=== PATIENT | male | born 1985 | race Caucasian/White ===

== ENCOUNTER 2024-02-24 10:29 | Emergency (ER) | payer BC, OTHER ==
[~2024-02-24] VITALS: Ht 177.8 cm; Wt 77.7 kg
[~2024-02-24 10:29] MED LIST: ACET-812 PO; IBUP-24 PO
[2024-02-24 12:12] LABS: BASOPHILS # (AUTO) 0.1 X10'3 (0-0.2); BASOPHILS % (AUTO) 0.6 % (0-1); EOSINOPHILS % (AUTO) 0.3 % (0-6); HEMATOCRIT 46.1 % (42.0-52.0); HEMOGLOBIN 15.5 g/dl (14.0-17.9); LYMPHOCYTES # (AUTO) 1.2 X10'3 (1.1-4.8); LYMPHOCYTES % (AUTO) 11.8 % (21-51); MEAN CORPUSCULAR HGB CONC 33.6 g/dL (33.0-36.5); MEAN CORPUSCULAR VOLUME 107.3 FL (78-98); MONOCYTES # (AUTO) 1.2 X10'3 (0-0.9); MONOCYTES % (AUTO) 11.3 % (2-12); NEUTROPHILS # (AUTO) 7.8 X10'3 (1.8-7.7); PLATELET COUNT 204 X10'3 (140-440); RED CELL DISTRIBUTION WIDTH 12.6 % (11.5-14.5); WHITE BLOOD COUNT 10.3 X10'3 (4.5-11.0)
[2024-02-24 12:17] LABS: ALANINE AMINOTRANSFERASE 49 U/L (12-78); ALBUMIN 3.9 G/DL (3.4-5.0); ALBUMIN/GLOBULIN RATIO 0.8 (1.1-1.5); ALKALINE PHOSPHATASE 114 IU/L (46-116); AMYLASE 62 U/L (25-115); ANION GAP 24 (8-16); ASPARTATE AMINO TRANSFERASE 219 U/L (10-37); BLOOD UREA NITROGEN 19 MG/DL (7-18); CALCIUM 9.8 MG/DL (8.5-10.1); CHLORIDE 90 MMOL/L (99-107); CREATININE 1.58 MG/DL (0.60-1.10); GLUCOSE 122 MG/DL (70-104); LIPASE 64 U/L (16-77); POTASSIUM 3.1 MMOL/L (3.5-5.1); SODIUM 134 MMOL/L (135-145); eCRCL 66 ML/MIN; eGFR 50 ML/MIN
[2024-02-24 12:50] LABS: BILIRUBIN,URINE LARGE (Neg); CLARITY,URINE CLOUDY (Clear); COLOR,URINE AMBER (Yellow); GLUCOSE, URINE 100 mg/dl (Neg); KETONES,URINE >=80 mg/dl (Neg); LEUKOCYTE ESTERASE ,URINE TRACE (Neg); NITRITES, URINE POSITIVE (Neg); OCCULT BLOOD,URINE NEGATIVE (Neg); PH,URINE 6.5 (4.8-8.0); PROTEIN,URINE 100 mg/dl (Neg)
[2024-02-24 13:19] LABS: APTT 26 SECONDS (22-32); INR 1.1 INR; PROTHROMBIN TIME 11.6 SECONDS (9.0-12.0)
[2024-02-24 13:36] LABS: UA COLLECTION TYPE CLN CATCH MIDSTREAM
[2024-02-24 13:38] LABS: HYALINE CASTS >30 /LPF (NEGATIVE)
[2024-02-24 13:42] LABS: BACTERIA,URINE 1+ /HPF (Neg); RBC,URINE 0-2 /HPF (0-2); WBC,URINE 50-100 /HPF (0-4)
[2024-02-24 13:43] LABS: MUCUS STRANDS MODERATE /LPF (Neg); SQUAMOUS EPITHELIAL CELL,UR FEW /LPF (FEW)
[2024-02-24] MEDS: metoclopramide 5 mg/ml inj IV ONE (14:43)
[2024-02-24] MEDS: ondansetron/PF 4mg/2ml inj IV ONE (14:43)
[2024-02-24] MEDS: normal saline 1000ML IV soln IVB ONE (14:47)
[2024-02-24] MEDS: potassium bicarbonate/cit acid 25mEq tablet.effervescent PO ONE (15:15)
[2024-02-24] MEDS: CefTRIAXone 2gm/D5W 50ml BAG 50 ML IV ONE (15:15)
[2024-02-24 17:32] VITALS: TEMP 98.3
[2024-02-24 18:03] VITALS: BP 127/89; PULSE 89; RESP 18; O2SAT 99
[2024-02-24] MEDS ORDERED: SULF1TAB49 PO (18:04)
== END 2024-02-24 18:04 | disposition home or self-care (01) ==
LOC: ER 10:30
DX: R19.7 Diarrhea, unspecified (principal); R11.10 Vomiting, unspecified; R10.13 Epigastric pain; F17.200 Nicotine dependence, unspecified, uncomplicated; F12.90 Cannabis use, unspecified, uncomplicated; I95.9 Hypotension, unspecified; Z79.1 Long term (current) use of non-steroidal anti-inflammatories (NSAID); Z79.2 Long term (current) use of antibiotics; Z90.49 Acquired absence of other specified parts of digestive tract
CPT/HCPCS: 36415; 74176; 80053; 81001; 82150; 83690; 85025; 85610; 85730; 87088; 96365; 96375; 99285; J0696; J2405; J2765; J7030